=== PATIENT | male | born 1985 | race American Indian/Alaskan Native ===

== ENCOUNTER 2016-12-04 10:51 | Emergency (ER) | payer OTHER ==
[2016-12-04 11:00] VITALS: BP 157/78
[2016-12-04] MEDS ORDERED: Sodium Chloride 0.9% 1,000 ML IV ONE (11:22)
[2016-12-04] MEDS ORDERED: Magnesium Sulfate/Water 2 GM in Premix Bag 1 BAG IV ONE (11:22)
[2016-12-04] MEDS ORDERED: Sodium Chloride 0.9% 10 ML Syringe FLUSH PRN (11:22)
[2016-12-04] MEDS ORDERED: Thiamine 100 MG Tab PO ONE (11:22)
[2016-12-04] MEDS ORDERED: chlordiazePOXIDE 25 MG Cap PO ONE (11:23)
[2016-12-04] MEDS ORDERED: Folic Acid 1 MG Tab PO ONE (11:23)
[2016-12-04] MEDS ORDERED: Propranolol 80 MG Cap.ER PO ONE (11:23)
[2016-12-04] MEDS ORDERED: Propranolol 60 MG Cap.ER PO ONE (11:30)
--- NOTE | 2016-12-04 11:34 | EDM.PDOCBH ---
ED HPI GENERAL MEDICAL PROBLEM - General Chief Complaint: Drug or Alcohol Abuse Stated Complaint: ALCOHOL DETOX Time Seen by Provider: 12/04/16 11:23 Source of Information: Reports: Patient History Limitations: Reports: No Limitations - History of Present Illness INITIAL COMMENTS - FREE TEXT/NARRATIVE: Patient is a 31-year-old male who presents to the ED with a history of alcoholism wishing for detox. Patient states for the last week and a half he has been consuming a case of beer daily. States he has a history of alcoholism requiring hospitalization for detox approximately 1 year ago. Patient states he was in patient for only one day and was discharged home the following day. He was sober for almost 4 months. Patient states after the 4 months he has been drinking alcohol every weekend up until recently. States last weekend he and his cousin were drinking. Cousin past away in his sleep. Thus this prompted to continue drinking. Currently the patient is mildly anxious about seeking treatment. He states with detox he's never had a seizure or hallucinations. Patient does becomes anxious. Patient has a past medical history of hypertension, acid reflux, or closing, anxiety, and panic attacks. Current medications include: Baby aspirin daily, losartan, omeprazole, Zocor, and vitamin B12. Patient smokes one pack per day. Denies any recreational drug use. - Related Data Allergies Allergy/AdvReac Type Severity Reaction Status Date / Time codeine AdvReac Tachycardia Verified 12/04/16 11:35 hydrocodone AdvReac Tachycardia Verified 12/04/16 11:35 Home Meds: Home Meds Aspirin [Scar Chewable] 81 mg PO DAILY 01/05/15 [History] Losartan [Cozaar] 50 mg PO DAILY 01/05/15 [History] Omeprazole [Prilosec] 20 mg PO BID 01/05/15 [History] Simvastatin [Zocor] 20 mg PO BEDTIME 07/13/15 [History] Cyanocobalamin (Vitamin B-12) [Vitamin B-12] 1,000 mcg PO DAILY 12/04/16 [ History] Propranolol HCl [Inderal LA] 80 mg PO QAM #15 cap.sa.24h 12/04/16 [Rx] chlordiazePOXIDE [Librium] 25 mg PO TID #18 cap 12/04/16 [Rx] Past Medical History - Past Health History Medical/Surgical History: Denies Medical/Surgical History Cardiovascular History: Reports: Hypertension Gastrointestinal History: Reports: GERD Psychiatric History: Reports: Addiction, Anxiety, Panic Attack Endocrine/Metabolic History: Reports: Obesity/BMI 30+ Social & Family History - Family History Family Medical History: Noncontributory - Tobacco Use Smoking Status *Q: Current Every Day Smoker Years of Tobacco use: 17 Packs/Tins Daily: 1 - Caffeine Use Caffeine Use: Reports: Coffee - Alcohol Use Date of Last Drink: 12/04/16 Time of Last Drink: 09:00 - Recreational Drug Use Recreational Drug Use: No - Living Situation & Occupation Living situation: Reports: Single Occupation: Unemployed ED ROS GENERAL - Review of Systems Review Of Systems: See Below Constitutional: Denies: Fever, Chills, Malaise, Decreased Appetite HEENT: Reports: No Symptoms Respiratory: Reports: No Symptoms Cardiovascular: Reports: No Symptoms GI/Abdominal: Reports: No Symptoms Neurological: Denies: Dizziness, Headache Psychiatric: Reports: Anxiety ED EXAM, BEHAVIORAL HEALTH - Physical Exam Exam: See Below Exam Limited By: No Limitations General Appearance: Alert, WD/WN, No Apparent Distress Ears: Hearing Grossly Normal Nose: Normal Inspection Throat/Mouth: Normal Voice, No Airway Compromise Neck: Normal Inspection, Supple Respiratory/Chest: No Respiratory Distress, Lungs Clear, Normal Breath Sounds, No Accessory Muscle Use Cardiovascular: Normal Peripheral Pulses, Regular Rate, Rhythm GI/Abdominal: Normal Bowel Sounds, Soft, Non-Tender, No Distention Extremities: Normal Inspection Neurological: Alert, Normal Mood/Affect, CN II-XII Intact, Normal Cognition, No Motor/Sensory Deficits, Oriented x 3 Psychiatric: Alert, Normal Affect, Normal Cognition, Normal Mood, Oriented Skin Exam: Warm, Dry, Intact, Normal color COURSE, BEHAVIORAL HEALTH COMP - Course Vital Signs: Last Vital Signs Temp 97.8 F 12/04/16 10:57 Pulse 120 H 12/04/16 10:57 Resp 16 12/04/16 10:57 BP 157/78 H 12/04/16 10:57 Pulse Ox 97 12/04/16 10:57 Orders, Labs, Meds: Active Orders 24 hr Category Date Time Status EKG Documentation Completion [RC] STAT Care 12/04/16 11:25 Active Peripheral IV Care [RC] . DIRECTED Care 12/04/16 11:23 Active Sodium Chloride 0.9% [Saline Flush] Med 12/04/16 11:22 Active 10 ml FLUSH ASDIRECTED PRN Peripheral IV Insertion Adult [OM.PC] Stat Oth 12/04/16 11:22 Ordered Medication Orders Sodium Chloride (Saline Flush) 10 ml FLUSH ASDIRECTED PRN PRN Reason: Keep Vein Open Last Admin: 12/04/16 11:51 Dose: 10 ml Laboratory Tests 12/04/16 12/04/16 12/04/16 Range/Units 11:05 11:05 11:05 WBC 12.05 H (4.23-9.07) K/mm3 RBC 6.66 H (4.63-6.08) M/mm3 Hgb 17.5 (13.7-17.5) gm/L Hct 53.0 H (40.1-51.0) % MCV 79.6 (79.0-92.2) fl MCH 26.3 (25.7-32.2) pg MCHC 33.0 (32.2-35.5) g/dl RDW Std Deviation 48.5 H (35.1-43.9) fL Plt Count 293 (163-337) K/mm3 MPV 9.6 (9.4-12.3) fl Neut % (Auto) 73.1 H (34.0-67.9) % Lymph % (Auto) 16.3 L (21.8-53.1) % [place] % (Auto) 7.6 (5.3-12.2) % Eos % (Auto) 2.5 (0.8-7.0) Baso % (Auto) 0.2 (0.1-1.2) % Neut # (Auto) 8.79 H (1.78-5.38) K/mm3 Lymph # (Auto) 1.97 (1.32-3.57) K/mm3 [place] # (Auto) 0.92 H (0.30-0.82) K/mm3 Eos # (Auto) 0.30 (0.04-0.54) K/mm3 Baso # (Auto) 0.03 (0.01-0.08) K/mm3 Manual Slide Review Normal smear Sodium 135 L (136-145) mEq/L Potassium 4.1 (3.5-5.1) mEq/L Chloride 100 (98-107) mEq/L Carbon Dioxide 22 (21-32) mEq/L Anion Gap 17.1 H (5-15) BUN 5 L (7-18) mg/dL Creatinine 0.7 (0.7-1.3) mg/dL Est Cr Clr Drug Dosing 159.86 mL/min Estimated GFR (MDRD) > 60 (>60) mL/min BUN/Creatinine Ratio 7.1 L (14-18) Glucose 100 (74-106) mg/dL Calcium 8.9 (8.5-10.1) mg/dL Total Bilirubin 0.6 (0.2-1.0) mg/dL AST 56 H (15-37) U/L ALT 58 (16-63) U/L Alkaline Phosphatase 153 H (46-116) U/L Total Protein 8.0 (6.4-8.2) g/dl Albumin 3.3 L (3.4-5.0) g/dl Globulin 4.7 gm/dL Albumin/Globulin Ratio 0.7 L (1-2) TSH 3rd Generation 0.868 (0.358-3.74) uIU/mL Urine Color (Yellow) Urine Appearance (Clear) Urine pH (5.0-8.0) Ur Specific [place] (1.005-1.030) Urine Protein (Negative) Urine Glucose (UA) (Negative) Urine Ketones (Negative) Urine Occult Blood (Negative) Urine Nitrite (Negative) Urine Bilirubin (Negative) Urine Urobilinogen (0.2-1.0) Ur Leukocyte Esterase (Negative) Urine RBC (0-5) /hpf Urine WBC (0-5) /hpf Ur Epithelial Cells (0-5) /hpf Urine Bacteria (FEW) /hpf Urine Mucus (FEW) /hpf Urine Opiates Screen (NEGATIVE) Ur Buprenorphine Scrn (NEGATIVE) Ur Oxycodone Screen (NEGATIVE) Urine Methadone Screen (NEGATIVE) Ur Propoxyphene Screen (NEGATIVE) Ur Barbiturates Screen (NEGATIVE) Ur Tricyclics Screen (NEGATIVE) Ur Phencyclidine Scrn (NEGATIVE) Ur Amphetamine Screen (NEGATIVE) U Methamphetamines Scrn (NEGATIVE) U Benzodiazepines Scrn (NEGATIVE) U Cocaine Metab Screen (NEGATIVE) U Marijuana (THC) Screen (NEGATIVE) Ethyl Alcohol 0.06 (0.00) gm% 12/04/16 12/04/16 Range/Units 11:43 11:43 WBC (4.23-9.07) K/mm3 RBC (4.63-6.08) M/mm3 Hgb (13.7-17.5) gm/L Hct (40.1-51.0) % MCV (79.0-92.2) fl MCH (25.7-32.2) pg MCHC (32.2-35.5) g/dl RDW Std Deviation (35.1-43.9) fL Plt Count (163-337) K/mm3 MPV (9.4-12.3) fl Neut % (Auto) (34.0-67.9) % Lymph % (Auto) (21.8-53.1) % [place] % (Auto) (5.3-12.2) % Eos % (Auto) (0.8-7.0) Baso % (Auto) (0.1-1.2) % Neut # (Auto) (1.78-5.38) K/mm3 Lymph # (Auto) (1.32-3.57) K/mm3 [place] # (Auto) (0.30-0.82) K/mm3 Eos # (Auto) (0.04-0.54) K/mm3 Baso # (Auto) (0.01-0.08) K/mm3 Manual Slide Review Sodium (136-145) mEq/L Potassium (3.5-5.1) mEq/L Chloride (98-107) mEq/L Carbon Dioxide (21-32) mEq/L Anion Gap (5-15) BUN (7-18) mg/dL Creatinine (0.7-1.3) mg/dL Est Cr Clr Drug Dosing mL/min Estimated GFR (MDRD) (>60) mL/min BUN/Creatinine Ratio (14-18) Glucose (74-106) mg/dL Calcium (8.5-10.1) mg/dL Total Bilirubin (0.2-1.0) mg/dL AST (15-37) U/L ALT (16-63) U/L Alkaline Phosphatase (46-116) U/L Total Protein (6.4-8.2) g/dl Albumin (3.4-5.0) g/dl Globulin gm/dL Albumin/Globulin Ratio (1-2) TSH 3rd Generation (0.358-3.74) uIU/mL Urine Color Yellow (Yellow) Urine Appearance Clear (Clear) Urine pH 6.0 (5.0-8.0) Ur Specific [place] 1.010 (1.005-1.030) Urine Protein Negative (Negative) Urine Glucose (UA) Negative (Negative) Urine Ketones Negative (Negative) Urine Occult Blood Negative (Negative) Urine Nitrite Negative (Negative) Urine Bilirubin Negative (Negative) Urine Urobilinogen 0.2 (0.2-1.0) Ur Leukocyte Esterase Trace H (Negative) Urine RBC 0-5 (0-5) /hpf Urine WBC 0-5 (0-5) /hpf Ur Epithelial Cells 0-5 (0-5) /hpf Urine Bacteria Few (FEW) /hpf Urine Mucus Few (FEW) /hpf Urine Opiates Screen Negative (NEGATIVE) Ur Buprenorphine Scrn Negative (NEGATIVE) Ur Oxycodone Screen Negative (NEGATIVE) Urine Methadone Screen Negative (NEGATIVE) Ur Propoxyphene Screen Negative (NEGATIVE) Ur Barbiturates Screen Negative (NEGATIVE) Ur Tricyclics Screen Negative (NEGATIVE) Ur Phencyclidine Scrn Negative (NEGATIVE) Ur Amphetamine Screen Negative (NEGATIVE) U Methamphetamines Scrn Negative (NEGATIVE) U Benzodiazepines Scrn Negative (NEGATIVE) U Cocaine Metab Screen Negative (NEGATIVE) U Marijuana (THC) Screen Negative (NEGATIVE) Ethyl Alcohol (0.00) gm% Medications Generic Name Dose Route Start Last Admin Trade Name Freq PRN Reason Stop Dose Admin Sodium Chloride 10 ml 12/04/16 11:22 12/04/16 11:51 Saline Flush FLUSH 10 ml ASDIRECTED PRN Administration Keep Vein Open Discontinued Medications Generic Name Dose Route Start Last Admin Trade Name Freq PRN Reason Stop Dose Admin Chlordiazepoxide HCl 25 mg 12/04/16 11:23 12/04/16 11:49 Librium PO 12/04/16 11:24 25 mg ONETIME ONE Administration Folic Acid 1 mg 12/04/16 11:23 12/04/16 11:49 Folic Acid PO 12/04/16 11:24 1 mg ONETIME ONE Administration Magnesium Sulfate 2 gm/ Premix 50 mls @ 25 mls/hr 12/04/16 11:22 12/04/16 11: 47 IV 12/04/16 13:21 25 mls/hr ONETIME ONE Administration Sodium Chloride 1,000 mls @ 999 mls/hr 12/04/16 11:22 12/04/16 11:46 Normal Saline IV 12/04/16 12:22 999 mls/hr ONETIME ONE Administration Propranolol HCl 80 mg 12/04/16 11:23 12/04/16 11:53 Inderal La PO 12/04/16 11:24 Not Given ONETIME ONE Propranolol HCl 60 mg 12/04/16 11:30 12/04/16 11:49 Inderal La PO 12/04/16 11:31 60 mg ONETIME ONE Administration Thiamine HCl 100 mg 12/04/16 11:22 12/04/16 11:49 Vitamin B-1 PO 12/04/16 11:23 100 mg ONETIME ONE Administration Re-Assessment/Re-Exam: Patient is a longtime alcoholic who recently has been drinking a case of beer every day for the past week and a half. He is requesting detox. States last time he was in detox approximately 1 year ago. He does not have any seizures or hallucinations. He gets anxious. Currently he is feeling anxious. Vital signs indicated blood pressure normotensive with a heart rate of 120. Peripheral IV started with normal saline. Ordered folic acid 1 mg by mouth, magnesium 2 g IV, thiamine 100 mg by mouth, Inderal 60 mg by mouth, and Librium 25 mg by mouth. Initial labs include CBC, chem 14, urine drug tox, serum EtOH, TSH, UA, and EKG. Reviewed Labs. EKG: Sinus tachycardia at a rate of [address] changes noted. 1325 Dr. Trejo in the ED speaking with the patient. 1331 Patient has elected to not be admitted to here for detox. Patients sister is attempting to get him into a treatment facility in [place]. Patient does not want to go to [facility] and/or [facility] for treatment. These two facilities are too far from family. Patient has attempted to get into [facility] in [place] but they are a month away for opening. Patient request to be discharged home. Once IVF are in will discharge patient home. Departure - Departure Time of Disposition: 13:34 Disposition: Home, Self-Care 01 Condition: Good Clinical Impression: Alcohol abuse - Discharge Information Prescriptions: chlordiazePOXIDE [Librium] 25 mg PO TID #18 cap Propranolol HCl [Inderal LA] 80 mg PO QAM #15 cap.sa.24h Instructions: Alcohol Use Disorder, Chemical Dependency, Finding Treatment for Addiction Referrals: PCP,Not In Area [Primary Care Provider] - Perico Gomez LAC [Licensed Counselor] - [facility] [Outside] Additional Instructions: Take the inderal and librium as prescribed for alcohol withdraw symptoms. Push the fluids. Refrain from alcohol while taking librium. See your PCP for reevalation this coming week. Suggest exhausting all options for inpatient treatment for alcoholism. Return to the E.D. if you develop any new or worsening symptoms. - My Orders Last 24 Hours: My Active Orders 12/04/16 11:22 Sodium Chloride 0.9% [Saline Flush] 10 ml FLUSH ASDIRECTED PRN Peripheral IV Insertion Adult [OM.PC] Stat 12/04/16 11:23 Peripheral IV Care [RC] . DIRECTED 12/04/16 11:25 EKG Documentation Completion [RC] STAT - Assessment/Plan Last 24 Hours: My Active Orders 12/04/16 11:22 Sodium Chloride 0.9% [Saline Flush] 10 ml FLUSH ASDIRECTED PRN Peripheral IV Insertion Adult [OM.PC] Stat 12/04/16 11:23 Peripheral IV Care [RC] . DIRECTED 12/04/16 11:25 EKG Documentation Completion [RC] STAT
== END 2016-12-04 14:39 | disposition home or self-care (01) ==
LOC: JD.ED 10:51
DX: F10.10 Alcohol abuse, uncomplicated (principal); I10 Essential (primary) hypertension; K21.9 Gastro-esophageal reflux disease without esophagitis; E66.9 Obesity, unspecified; F41.9 Anxiety disorder, unspecified; F17.210 Nicotine dependence, cigarettes, uncomplicated; Z86.59 Personal history of other mental and behavioral disorders; Z88.5 Allergy status to narcotic agent; Z79.82 Long term (current) use of aspirin; Z79.899 Other long term (current) drug therapy
CPT/HCPCS: 36415; 80053; 80306; 81001; 84443; 85025; 93005; 96365; 96366; 99285; A9270; G0480; J7040; J7050; 99284; J3475

== ENCOUNTER 2017-03-28 14:05 | Emergency (ER) | payer OTHER ==
[2017-03-28 14:41] VITALS: BP 123/78
== END 2017-03-28 14:26 | disposition left against medical advice (07) ==
LOC: JD.ED 14:05
DX: Z53.21 Procedure and treatment not carried out due to patient leaving prior to being seen by health care provider (principal)
CPT/HCPCS: 99283

== ENCOUNTER 2017-12-08 19:42 | Emergency (ER) | payer OTHER ==
[2017-12-08] MEDS ORDERED: Sodium Chloride 0.9% 10 ML Syringe FLUSH PRN (20:11)
[2017-12-08] MEDS ORDERED: Sodium Chloride 0.9% 1,000 ML IV ONE (20:11)
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
[2017-12-08 20:16] VITALS: BP 146/86
== END 2017-12-08 22:13 | disposition home or self-care (01) ==
LOC: JD.ED 19:42
DX: S02.2XXA Fracture of nasal bones, initial encounter for closed fracture (principal); H11.32 Conjunctival hemorrhage, left eye; S05.12XA Contusion of eyeball and orbital tissues, left eye, initial encounter; S05.11XA Contusion of eyeball and orbital tissues, right eye, initial encounter; S20.212A Contusion of left front wall of thorax, initial encounter; S20.211A Contusion of right front wall of thorax, initial encounter; S40.011A Contusion of right shoulder, initial encounter; Z88.5 Allergy status to narcotic agent; Z79.82 Long term (current) use of aspirin; I10 Essential (primary) hypertension; E66.9 Obesity, unspecified; Y04.8XXA Assault by other bodily force, initial encounter
CPT/HCPCS: 36415; 70450; 70486; 71046; 73030; 80053; 83735; 85025; 96360; 99284; G0480; J7040; J7050

== ENCOUNTER 2021-01-02 10:53 | Emergency (ER) | payer OTHER ==
[2021-01-02] MEDS ORDERED: Sodium Chloride 0.9% 10 ML Syringe FLUSH PRN (11:41)
[2021-01-02] MEDS ORDERED: Sodium Chloride 0.9% 1,000 ML IV STA (11:41)
[2021-01-02] MEDS ORDERED: Ondansetron 4 MG/2 ML SDV IVPUSH ONE (11:41)
[2021-01-02] MEDS ORDERED: Folic Acid 1 MG Tab PO ONE (11:47)
[2021-01-02] MEDS ORDERED: Thiamine 100 MG Tab PO ONE (11:47)
--- NOTE | 2021-01-02 11:47 | EDM.PDOCBH ---
ED HPI GENERAL MEDICAL PROBLEM - General Chief Complaint: Drug or Alcohol Abuse Stated Complaint: SOB AND ALCOHOL DETOX Time Seen by Provider: 01/02/21 11:19 Source of Information: Reports: Patient, RN Notes Reviewed History Limitations: Reports: No Limitations - History of Present Illness INITIAL COMMENTS - FREE TEXT/NARRATIVE: Patient is a 35-year-old male presenting to the emergency department with complaints of "alcohol withdrawal "or "a bad hangover ". He complains of headache, nausea, and feeling anxious. He reports that he has been drinking heavily since Sunday. States has been drinking a case of beer and a liter of whiskey per day. Prior to this, he admits to drinking about once a month, however does go on a binge every couple months. He admits that his anxiety and depression has been worse than normal and he feels that he has been drinking much due to this. He stopped his Escitalopram approximately 1 month ago and feels like his anxiety has been worsening since that time. His last drink was around 5:00 this morning. States it was a beer, however he was drinking all last evening as well. Patient feels that he needs help to stop drinking. Denies any homicidal or suicidal ideation. Denies any illicit drug use. He has no history of seizure with stopping drinking. He is prescribed a number of medications, however reports he has not been taking those for quite some time. Generalized Pain Score (Numeric/FACES): 7 - Related Data Allergies Allergy/AdvReac Type Severity Reaction Status Date / Time codeine AdvReac Tachycardia Verified 01/02/21 11:24 hydrocodone AdvReac Tachycardia Verified 01/02/21 11:24 Home Meds: Home Meds Aspirin [Scar Chewable] 81 mg PO DAILY 01/05/15 [History] Losartan [Cozaar] 100 mg PO DAILY 01/05/15 [History] Omeprazole [Prilosec] 20 mg PO BID 01/05/15 [History] Simvastatin [Zocor] 20 mg PO BEDTIME 07/13/15 [History] Cyanocobalamin (Vitamin B-12) [Vitamin B-12] 1,000 mcg PO DAILY 12/04/16 [History] Metoprolol Succinate [Toprol XL] 100 mg PO DAILY 03/28/17 [History] Escitalopram [Lexapro] 10 mg PO DAILY #30 tab 01/02/21 [Rx] LORazepam [Ativan] 1 mg PO Q8H #9 tab 01/02/21 [Rx] Past Medical History - Past Health History Medical/Surgical History: Denies Medical/Surgical History Cardiovascular History: Reports: High Cholesterol, Hypertension, SOB on Exertion Gastrointestinal History: Reports: GERD Musculoskeletal History: Reports: Back Pain, Chronic Psychiatric History: Reports: Addiction, Anxiety, Depression, Panic Attack Endocrine/Metabolic History: Reports: Obesity/BMI 30+ - Past Surgical History Endocrine Surgical History: Reports: None Social & Family History - Family History Family Medical History: No Pertinent Family History - Tobacco Use Tobacco Use Status *Q: Current Every Day Tobacco User Years of Tobacco use: 20 Packs/Tins Daily: 1 - Caffeine Use Caffeine Use: Reports: Soda - Alcohol Use Days Per Week of Alcohol Use: 5 Number of Drinks Per Day: 24 Total Drinks Per Week: 120 - Recreational Drug Use Recreational Drug Use: No - Living Situation & Occupation Living situation: Reports: Single Occupation: Unemployed ED ROS GENERAL - Review of Systems Review Of Systems: See Below Constitutional: Reports: No Symptoms. Denies: Fever, Chills HEENT: Reports: No Symptoms Respiratory: Reports: No Symptoms Cardiovascular: Reports: No Symptoms Endocrine: Reports: No Symptoms GI/Abdominal: Reports: Nausea. Denies: Abdominal Pain, Vomiting : Reports: No Symptoms Musculoskeletal: Reports: No Symptoms Skin: Reports: No Symptoms Neurological: Reports: Headache. Denies: Tremors Psychiatric: Reports: Anxiety. Denies: Confusion, Hallucinations, Homicidal Ideation, Suicidal Ideation Hematologic/Lymphatic: Reports: No Symptoms Immunologic: Reports: No Symptoms ED EXAM, BEHAVIORAL HEALTH - Physical Exam Exam: See Below General Appearance: Alert, WD/WN, No Apparent Distress, Obese Respiratory/Chest: No Respiratory Distress, Lungs Clear, Normal Breath Sounds, No Accessory Muscle Use, Chest Non-Tender Cardiovascular: Normal Peripheral Pulses, Regular Rate, Rhythm, No Edema, No Gallop, No JVD, No Murmur, No Rub GI/Abdominal: Normal Bowel Sounds, Soft, Non-Tender, No Organomegaly, No Distention, No Abnormal Bruit, No Mass, Other (Obese) Neurological: Alert, Normal Mood/Affect, CN II-XII Intact, Normal Cognition, Normal Gait, Normal Reflexes, No Motor/Sensory Deficits, Oriented x 3 Psychiatric: Alert, Normal Affect, Normal Cognition, Normal Mood, Oriented Skin Exam: Warm, Dry, Intact, Normal color, No rash COURSE, BEHAVIORAL HEALTH COMP - Course Vital Signs: Last Vital Signs Temp 97.9 F 01/02/21 11:23 Pulse 100 01/02/21 13:19 Resp 18 01/02/21 13:19 BP 145/88 H 01/02/21 13:19 Pulse Ox 95 01/02/21 13:19 Orders, Labs, Meds: Laboratory Tests 01/02/21 01/02/21 Range/Units 12:00 12:00 WBC 14.38 H (4.23-9.07) K/mm3 RBC 6.65 H (4.63-6.08) M/mm3 Hgb 17.2 (13.7-17.5) gm/dl Hct 51.8 H (40.1-51.0) % MCV 77.9 L D (79.0-92.2) fl MCH 25.9 (25.7-32.2) pg MCHC 33.2 (32.2-35.5) g/dl RDW Std Deviation 47.7 H (35.1-43.9) fL Plt Count 374 H (163-337) K/mm3 MPV 9.7 (9.4-12.3) fl Neut % (Auto) 86.5 H (34.0-67.9) % Lymph % (Auto) 6.3 L (21.8-53.1) % Thayer % (Auto) 6.2 (5.3-12.2) % Eos % (Auto) 0.5 L (0.8-7.0) Baso % (Auto) 0.1 (0.1-1.2) % Neut # (Auto) 12.44 H (1.78-5.38) K/mm3 Lymph # (Auto) 0.90 L (1.32-3.57) K/mm3 Thayer # (Auto) 0.89 H (0.30-0.82) K/mm3 Eos # (Auto) 0.07 (0.04-0.54) K/mm3 Baso # (Auto) 0.02 (0.01-0.08) K/mm3 Sodium 132 L (136-145) mEq/L Potassium 4.1 (3.5-5.1) mEq/L Chloride 96 L (98-107) mEq/L Carbon Dioxide 27 (21-32) mEq/L Anion Gap 13.1 (5-15) BUN 6 L (7-18) mg/dL Creatinine 0.8 (0.7-1.3) mg/dL Est Cr Clr Drug Dosing 134.65 mL/min Estimated GFR (MDRD) > 60 (>60) mL/min BUN/Creatinine Ratio 7.5 L (14-18) Glucose 128 H (70-99) mg/dL Calcium 8.5 (8.5-10.1) mg/dL Magnesium 1.8 (1.8-2.4) mg/dL Total Bilirubin 0.8 (0.2-1.0) mg/dL AST 24 (15-37) U/L ALT 22 (16-63) U/L Alkaline Phosphatase 186 H (46-116) U/L Total Protein 7.8 (6.4-8.2) g/dl Albumin 2.9 L (3.4-5.0) g/dl Globulin 4.9 gm/dL Albumin/Globulin Ratio 0.6 L (1-2) Ethyl Alcohol 0.00 (0.00) gm% Medications Discontinued Medications Generic Name Dose Route Start Last Admin Trade Name Freq PRN Reason Stop Dose Admin Folic Acid 1 mg 01/02/21 11:47 01/02/21 12:09 Folic Acid 1 Mg Tab PO 01/02/21 11:48 1 mg ONETIME ONE Administration Sodium Chloride 1,000 mls @ 999 mls/hr 01/02/21 11:41 01/02/21 12:09 Normal Saline IV 01/02/21 12:41 999 mls/hr NOW STA Administration Lorazepam 0.5 mg 01/02/21 12:45 01/02/21 13:24 Lorazepam 2 Mg/Ml Sdv IVPUSH 01/02/21 12:46 0.5 mg ONETIME ONE Administration Ondansetron HCl 4 mg 01/02/21 11:41 01/02/21 12:09 Ondansetron 4 Mg/2 Ml Sdv IVPUSH 01/02/21 11:42 4 mg ONETIME ONE Administration Sodium Chloride 10 ml 01/02/21 11:41 01/02/21 12:09 Sodium Chloride 0.9% 10 Ml Syringe FLUSH 10 ml ASDIRECTED PRN Administration Keep Vein Open Thiamine HCl 100 mg 09/26/21 11:47 01/02/21 12:09 Thiamine 100 Mg Tab PO 01/02/21 11:48 100 mg ONETIME ONE Administration Discharge vs Psych Eval/Treatment:: Patient is a 35-year-old male presenting to the emergency department with complaints of "a bad hangover ". He reports that he has been binge drinking since Sunday of last week. Last drink was early this morning. He reports worsening of his anxiety and depression. Has been off his escitalopram for approximately last month. Denies any suicidal or homicidal ideation. I have ordered blood work, I will give him a 1 L bolus of normal saline, Zofran, thiami ne, and folic acid. 01/02/21 13:20 Blood alcohol is 0.00. Have ordered to give Ativan 0.5 mg IV. Patient was evaluated by retail service representative from [facility] that he will go to the residential crisis center today. I will write prescription for Ativan 1 mg every 8 hours for 3 days. He will also start back on his Escitalopram 10 mg daily. Discharge instructions as documented. Departure - Departure Time of Disposition: 13:20 Disposition: Home, Self-Care 01 Condition: Good Clinical Impression: Alcohol abuse, Anxiety and depression - Discharge Information *PRESCRIPTION DRUG MONITORING PROGRAM REVIEWED*: Yes *COPY OF PRESCRIPTION DRUG MONITORING REPORT IN PATIENT EROS: No Prescriptions: LORazepam [Ativan] 1 mg PO Q8H #9 tab Escitalopram [Lexapro] 10 mg PO DAILY #30 tab Instructions: Alcohol Use Disorder Referrals: PCP,None [Primary Care Provider] - Forms: ED Department Discharge Additional Instructions: You were seen in the emergency department today for evaluation treatment of "hangover" symptoms after drinking since Sunday of last week. Blood work was completed in ER and found to be normal. Blood alcohol was 0. While in the ER, you received IV fluids, Zofran, thiamine, folic acid, and Ativan. This did improve your symptoms. Arrangements have been made for you to go to the [facility] residential crisis center. We will start you back on your Escitalopram. Have also written for 3-day course of Ativan to help with your anxiety. Follow the treatment recommendations from [facility]. Return to ER as needed.
[2021-01-02] MEDS ORDERED: LORazepam 2 MG/ML SDV IVPUSH ONE (12:45)
[2021-01-02 13:21] VITALS: BP 145/88; PULSE 100
== END 2021-01-02 14:35 | disposition home or self-care (01) ==
LOC: JD.ED 10:53
DX: F32.9 Major depressive disorder, single episode, unspecified (principal); F41.9 Anxiety disorder, unspecified; F10.10 Alcohol abuse, uncomplicated; E78.00 Pure hypercholesterolemia, unspecified; I10 Essential (primary) hypertension; E66.9 Obesity, unspecified; K21.9 Gastro-esophageal reflux disease without esophagitis; Z68.30 Body mass index [BMI] 30.0-30.9, adult; Z72.0 Tobacco use; Z79.82 Long term (current) use of aspirin; Z88.5 Allergy status to narcotic agent; Z79.899 Other long term (current) drug therapy; Y90.0 Blood alcohol level of less than 20 mg/100 ml
CPT/HCPCS: 36415; 80053; 80307; 83735; 85025; 96374; 96375; 99284; A9270; J2060; J2405; J7030

== ENCOUNTER 2021-11-21 14:59 | Emergency (ER) | payer OTHER ==
[2021-11-21] MEDS ORDERED: Dextrose 5%-Lactated Ringers 1,000 ML IV SCH (15:30)
[2021-11-21] MEDS ORDERED: Pantoprazole 40 MG Vial IVPUSH ONE (15:31)
[2021-11-21 15:48] VITALS: BP 109/60; PULSE 127
[2021-11-21] MEDS ORDERED: Lactated Ringers 1,000 ML IV SCH (17:15)
== END 2021-11-21 18:39 | disposition home or self-care (01) ==
LOC: JD.ED 14:59
DX: K21.9 Gastro-esophageal reflux disease without esophagitis (principal); I10 Essential (primary) hypertension; E66.9 Obesity, unspecified; Z68.30 Body mass index [BMI] 30.0-30.9, adult; Z88.5 Allergy status to narcotic agent; Z79.82 Long term (current) use of aspirin; Z79.899 Other long term (current) drug therapy
CPT/HCPCS: 36415; 71045; 80053; 80307; 83690; 83735; 85025; 85610; 93005; 96361; 96374; 99285; C9113; J7120; J7121; 93010; 99284

== ENCOUNTER 2023-01-16 12:39 | Emergency (ER) | payer MEDICAID, OTHER ==
[2023-01-16 13:16] VITALS: BP 137/57
[2023-01-16 13:34] LABS: BASOPHILS ABSOLUTE AUTO 0.1 K/mm3 (0.0-0.2); BASOPHILS PERCENT AUTO 0.5 % (0.0-1.0); EOSINOPHILS ABSOLUTE AUTO 0.4 K/mm3 (0.0-0.4); EOSINOPHILS PERCENT AUTO 2.8 % (0.0-6.0); HEMATOCRIT 58.5 % (42.0-52.0); HEMOGLOBIN 18.6 gm/dl (14.0-18.0); IMMATURE GRAN ABSOLUTE AUTO 0.07 K/mm3 (0.00-0.05); IMMATURE GRAN PERCENT AUTO 0.5 % (0.0-0.4); LYMPHOCYTES ABSOLUTE AUTO 2.2 K/mm3 (1.0-4.8); LYMPHOCYTES PERCENT AUTO 16.4 % (24.0-44.0); MEAN CORPUSCULAR HEMOGLOBIN 26.3 pg (28.0-32.0); MEAN CORPUSCULAR HGB CONC 31.8 g/dl (32.0-36.0); MEAN CORPUSCULAR VOLUME 82.7 fl (83.0-99.0); MEAN PLATELET VOLUME 9.6 fl (9.4-12.4); MONOCYTES ABSOLUTE AUTO 1.1 K/mm3 (0.0-0.8); MONOCYTES PERCENT AUTO 8.5 % (0.0-8.0); NEUTROPHILS ABSOLUTE AUTO 9.5 K/mm3 (1.8-7.7); NEUTROPHILS PERCENT AUTO 71.3 % (41.0-71.0); PLATELET COUNT,PLT 359 K/mm3 (150-400); RED BLOOD CELL COUNT 7.07 M/mm3 (4.52-5.90); WHITE BLOOD CELL COUNT,WBC 13.28 K/mm3 (3.9-11.3)
[2023-01-16 13:36] LABS: A/G RATIO 0.6 (1-2); ALBUMIN 3.1 g/dl (3.4-5.0); ANION GAP 18.8 (5-15); BILIRUBIN TOTAL 0.5 mg/dL (0.2-1.0); BUN/CREATININE RATIO 10.9 (14-18); CALCIUM 8.8 mg/dL (8.5-10.1); CREATININE 1.1 mg/dL (0.7-1.3); EST CRCL DRUG DOSING (CG) 96.03 mL/min; POTASSIUM,K 3.8 mEq/L (3.5-5.1); PROTEIN TOTAL,TP 8.3 g/dl (6.4-8.2)
[2023-01-16 15:07] VITALS: PULSE 93
== END 2023-01-16 14:53 | disposition home or self-care (01) ==
LOC: JD.ED 12:39
DX: Z71.1 Person with feared health complaint in whom no diagnosis is made (principal); F17.210 Nicotine dependence, cigarettes, uncomplicated; E78.00 Pure hypercholesterolemia, unspecified; I10 Essential (primary) hypertension; K21.9 Gastro-esophageal reflux disease without esophagitis; E66.9 Obesity, unspecified; Z79.82 Long term (current) use of aspirin; Z79.899 Other long term (current) drug therapy; Z88.5 Allergy status to narcotic agent; Z68.45 Body mass index [BMI] 70 or greater, adult
CPT/HCPCS: 36415; 80053; 85025; 93005; 93010; 99282; 99285

== ENCOUNTER 2023-12-13 11:30 | Emergency (ER) | payer MEDICAID ==
[2023-12-13 12:37] LABS: HEMATOCRIT 59.8 % (42.0-52.0); HEMOGLOBIN 17.6 gm/dl (14.0-18.0); MEAN CORPUSCULAR HEMOGLOBIN 24.8 pg (28.0-32.0); MEAN CORPUSCULAR HGB CONC 29.4 g/dl (32.0-36.0); MEAN CORPUSCULAR VOLUME 84.2 fl (83.0-99.0); MEAN PLATELET VOLUME 9.5 fl (9.4-12.4); NRBC ABSOLUTE 0.02 (0.00-0.02); NRBC PERCENT 0.1 % (0.0-0.2); PLATELET COUNT,PLT 280 K/mm3 (150-400); WHITE BLOOD CELL COUNT,WBC 15.45 K/mm3 (3.9-11.3)
[2023-12-13 12:57] LABS: INR 1.14
[2023-12-13 13:06] LABS: A/G RATIO 0.6 (1-2); ALBUMIN 3.1 g/dl (3.4-5.0); ANION GAP 7.1 (5-15); BILIRUBIN TOTAL 1.1 mg/dL (0.2-1.0); C-REACTIVE PROTEIN 3.71 mg/dL (<0.30); CALCIUM 8.8 mg/dL (8.5-10.1); CREATININE 1.1 mg/dL (0.7-1.3); EST CRCL DRUG DOSING (CG) 95.08 mL/min; POTASSIUM,K 4.1 mEq/L (3.5-5.1); PROTEIN TOTAL,TP 8.3 g/dl (6.4-8.2)
[2023-12-13 13:15] LABS: BAND PERCENT MAN 2 % (0-10); BASOPHILS PERCENT MAN 0 (0.2-1.2); EOSINOPHILS PERCENT MAN 1 % (0.8-7.0); LYMPHOCYTES % ATYPICAL MANUAL 0 %; LYMPHOCYTES PERCENT MAN 4 % (20-40); MONOCYTES PERCENT MAN 3 % (2-10)
[2023-12-13 13:20] LABS: ANISOCYTOSIS 2+ MODERATE; OVALOCYTES 1+ SLIGHT; PLATELET COUNT ESTIMATE ADEQUATE; POLYCHROMASIA 1+ SLIGHT
[2023-12-13] MEDS: cefTRIAXone 2 GM in Sodium Chloride 0.9% 100 ML IV ONE (13:34)
[2023-12-13] MEDS: Sodium Chloride 0.9% 10 ML Syringe FLUSH PRN (13:35)
[2023-12-13] MEDS: Sodium Chloride 0.9% 1,000 ML IV ONE ×2 (13:35→16:27)
[2023-12-13 14:38] LABS: CORONAVIRUS COVID-19 NAA NEGATIVE (NEGATIVE); INFLUENZA A NAA NEGATIVE (NEGATIVE); RESPIRATORY SYNCYTIAL VIR NAA NEGATIVE (NEGATIVE)
[2023-12-13] MEDS: HYDROmorphone 0.5 MG/0.5 ML Syringe IVPUSH ONE (14:45)
[2023-12-13] MEDS: VANCOmycin 2 GM/400 ML 2 GM in Premix Bag 1 BAG IV ONE (14:47)
[2023-12-13 16:39] LABS: BASE EXCESS ARTERIAL -0.2 (-2-2.0); BICARBONATE,ARTERIAL 30.8 meq/L (22.0-26.0); O2 SATURATION ARTERIAL 92.6 % (96.0-97.0)
[2023-12-13 16:41] LABS: PCO2 ARTERIAL 81.4 mmHg (35.0-45.0)
[2023-12-13] MEDS: Lactated Ringers 500 ML IV ONE (17:40)
[2023-12-13] MEDS: Lactated Ringers 1,000 ML IV ONE (18:54)
[2023-12-13] MEDS ORDERED: Naloxone 0.4 MG/ML SDV IVPUSH PRN (20:34)
[2023-12-13] MEDS: HYDROmorphone 1 MG/ML Syringe IVPUSH ONE (20:57)
[2023-12-13] MEDS: Sodium Chloride 0.9% 1,000 ML ONE (20:58)
[2023-12-13] MEDS: Sodium Chloride 0.9% 1,000 ML IV SCH (20:58)
[2023-12-13 21:47] VITALS: BP 100/44; PULSE 99
== END 2023-12-13 21:45 ==
LOC: JD.ED 11:30
DX: A41.9 Sepsis, unspecified organism (principal); R65.20 Severe sepsis without septic shock; L03.115 Cellulitis of right lower limb; L03.116 Cellulitis of left lower limb; I10 Essential (primary) hypertension; E78.00 Pure hypercholesterolemia, unspecified; E66.9 Obesity, unspecified; K21.9 Gastro-esophageal reflux disease without esophagitis; Z79.82 Long term (current) use of aspirin; Z79.899 Other long term (current) drug therapy; F17.210 Nicotine dependence, cigarettes, uncomplicated; Z88.5 Allergy status to narcotic agent; Z68.45 Body mass index [BMI] 70 or greater, adult
CPT/HCPCS: 0241U; 36415; 36600; 71045; 80053; 80307; 82803; 83605; 83880; 84484; 85007; 85027; 85379; 85610; 86140; 87040; 87077; 87154; 87186; 93005; 94660; 96361; 96365; 96366; 96367; 96375; 96376; 99285; J0696; J1170; J3372; J3490; J7030; J7120; 93010